=== PATIENT | female | born 1965 | race Caucasian/White ===

== ENCOUNTER 2017-08-11 18:13 | Emergency (ER) | payer MEDICAID ==
[~2017-08-11] VITALS: Ht 170.2 cm; Wt 56.2 kg
[~2017-08-11 18:13] MED LIST: ALBU0.63 NEB; AZIT500T5 PO; CHLO25CA9 PO; LEVO50TA PO; LEVO50TA5 PO; MULT-658 PO; OMEP-110 PO; PRED20TA PO
[2017-08-11 18:19] VITALS: BP 113/73
[2017-08-11] MEDS ORDERED: FLUT100B PO (19:02)
== END 2017-08-11 20:03 | disposition home or self-care (01) ==
LOC: ED 20:00
DX: M77.9 Enthesopathy, unspecified (principal); J45.909 Unspecified asthma, uncomplicated
CPT/HCPCS: 36415; 84550; 99285

== ENCOUNTER 2019-11-23 11:34 | Emergency (ER) | payer MEDICAID ==
[~2019-11-23] VITALS: Ht 170.2 cm; Wt 62.6 kg
[~2019-11-23 11:34] MED LIST changes: +AZIT500T10 PO; -AZIT500T5 PO; +FLUT100B PO
[2019-11-23] MEDS ORDERED: SODIUM CHLORIDE FLUSH 10ML SYR IVF ONE (12:30)
[2019-11-23 12:57] LABS: BASOPHILS # (AUTO) 0.07 x10^3/uL (0-0.1); BASOPHILS % (AUTO) 1 % (0-1); EOSINOPHILS % (AUTO) 1 % (1-7); LYMPHOCYTES # (AUTO) 2.99 x10^3/uL (1-3.4); LYMPHOCYTES % (AUTO) 37 % (22-44); MD NO; MEAN CORPUSCULAR HEMOGLOBIN 33.1 pg (27.0-34.8); MEAN CORPUSCULAR HGB CONC 33.2 g/dL (32.4-35.8); MEAN CORPUSCULAR VOLUME 99.6 fL (80-100); MEAN PLATELET VOLUME 7.9 fL (7.4-10.4); MONOCYTES # (AUTO) 0.72 x10^3/uL (0.2-0.8); MONOCYTES % (AUTO) 9 % (2-9); NEUTROPHILS # (AUTO) 4.22 x10^3/uL (1.8-6.8); NEUTROPHILS % (AUTO) 52 % (42-75); PLATELET COUNT 327 x10^3/uL (130-400); RED BLOOD COUNT 4.27 x10^6/uL (3.82-5.3); RED CELL DISTRIBUTION WIDTH 20.1 % (9.6-15.2)
[2019-11-23 13:07] LABS: ALANINE AMINOTRANSFERASE 29 U/L (12-78); ALBUMIN 3.9 g/dL (3.4-5.0); ANION GAP 5 mmol/L (5-15); CALCIUM 8.3 mg/dL (8.5-10.1); CHLORIDE 106 mmol/L (98-107); CREATININE 0.84 mg/dL (0.55-1.02)
[2019-11-23 13:09] LABS: ALKALINE PHOSPHATASE 108 U/L (45-117); BILIRUBIN,TOTAL 0.4 mg/dL (0.2-1.0); TOTAL PROTEIN 8.5 g/dL (6.4-8.2)
[2019-11-23 19:24] VITALS: BP 127/77
--- NOTE | 2019-11-23 19:29 | NUR ---
THIS IS A 54Y F THAT COMES IN W/ C/O "COLON COMING OUT OF MY RECTUM." PT STS SHE PUSHED THE MASS BACK IN BUT IT COMES OUT WHEN SHE HAS A BOWEL MOVEMENT. PT CONNECTED TO MONITORING NADN. APARNA MANDUJANO AT BEDSIDE. NO FURTHER NEEDS AT THIS TIME
--- NOTE | 2019-11-23 19:53 | NUR ---
Patient/Caregiver given discharge instructions and they have confirmed that they understand the instructions. Patient ambulatory with steady gait.
== END 2019-11-23 19:54 | disposition home or self-care (01) ==
LOC: ED 19:48
DX: K62.3 Rectal prolapse (principal); J45.909 Unspecified asthma, uncomplicated; Z86.39 Personal history of other endocrine, nutritional and metabolic disease
CPT/HCPCS: 36415; 80053; 83690; 85025; 99283

== ENCOUNTER 2021-07-05 08:47 | Emergency (ER) | payer MEDICAID ==
[~2021-07-05] VITALS: Ht 170.2 cm; Wt 61.8 kg
[2021-07-05] MEDS ORDERED: SODIUM CHLORIDE 0.9% 1,000ML IVBOLUS ONE (09:30)
--- NOTE | 2021-07-05 10:07 | NUR ---
bulb assembler note: Pt to room from lobby, ambulatory with steady gait.
[2021-07-05 10:11] LABS: MEAN CORPUSCULAR HEMOGLOBIN 35.5 pg (27.0-34.8); MEAN CORPUSCULAR HGB CONC 33.4 g/dL (32.4-35.8); MEAN PLATELET VOLUME 8.2 fL (7.4-10.4); PLATELET COUNT 264 x10^3/uL (130-400); RED BLOOD COUNT 3.46 x10^6/uL (3.82-5.3); RED CELL DISTRIBUTION WIDTH 20.7 % (9.6-15.2)
[2021-07-05 10:20] LABS: ALBUMIN 3.5 g/dL (3.4-5.0); ANION GAP 6 mmol/L (5-15); CALCIUM 8.7 mg/dL (8.5-10.1); CHLORIDE 103 mmol/L (98-107)
[2021-07-05 10:25] LABS: ALANINE AMINOTRANSFERASE 29 U/L (12-78); ALKALINE PHOSPHATASE 89 U/L (45-117); BILIRUBIN,TOTAL 0.3 mg/dL (0.2-1.0); CREATININE 0.69 mg/dL (0.55-1.02); TOTAL PROTEIN 7.9 g/dL (6.4-8.2)
--- NOTE | 2021-07-05 10:32 | NUR ---
NEED IV FOR CT EXAM
[2021-07-05 11:11] LABS: BAND#(MANUAL) 0.09 x10^3/uL; BANDS%(MANUAL) 2 % (0-7); BASOS#(MANUAL) 0.14 x10^3/uL (0-0.1); BASOS% (MANUAL) 3 % (0-1); EOS#(MANUAL) 0.05 x10^3/uL (0.0-0.4); EOS% (MANUAL) 1 % (1-7); LYMPH#(MANUAL) 1.83 x10^3/uL (1-3.4); LYMPHS% (MANUAL) 39 % (22-44); MONOS#(MANUAL) 0.66 x10^3/uL (0.3-2.7); MONOS% (MANUAL) 14 % (2-9); SEG#(MANUAL) 1.93 x10^3/uL (1.8-6.8); SEGS% (MANUAL) 41 % (42-75)
[2021-07-05 11:12] LABS: ANISOCYTOSIS 1+; STOMATOCYTES 1+
[2021-07-05 11:13] LABS: <PLATELET ESTIMATE> ADEQUATE; <PLT MORPHOLOGY> NORMAL PLT MORPH
[2021-07-05] MEDS ORDERED: OMNIPAQUE 350 MG/ML, 100ML BOTTLE ONE (11:15)
--- NOTE | 2021-07-05 11:24 | NUR ---
Back from CT, IVF infusing.
[2021-07-05 12:11] VITALS: BP 128/78
--- NOTE | 2021-07-05 12:13 | NUR ---
TASK RN: -Patient/Caregiver given discharge instructions and they have confirmed that they understand the instructions. Patient ambulatory with steady gait.
[2021-07-05 12:17] LABS: INTERNATIONAL NORMALIZED RATIO 0.99 (0.93-1.1); PROTHROMBIN TIME 10.6 Seconds (9.6-11.5)
== END 2021-07-05 12:13 | disposition home or self-care (01) ==
LOC: ED 10:55
DX: K62.89 Other specified diseases of anus and rectum (principal); R10.32 Left lower quadrant pain
CPT/HCPCS: 36415; 74177; 80053; 83690; 85025; 85610; 86850; 86900; 99285; Q9967